=== PATIENT | male | born 1960 | race Caucasian/White ===

== ENCOUNTER → 2016-07-02 | Day surgery (SDC) | payer OTHER ==
[2016-07-02] VITALS (8 sets, daily range): BP systolic 112–132; BP diastolic 76–86; PULSE 56–87; TEMP 97.8–98.9
[~2016-07-02] VITALS: Ht 185.4 cm; Wt 93.2 kg
== END ==
LOC: SDCO 13:11
DX: R17 Unspecified jaundice (principal); K80.20 Calculus of gallbladder without cholecystitis without obstruction
CPT/HCPCS: OP; C1769; J2250; J2405; J2704; J7120; Q9967